=== PATIENT | female | born 1950 | race Caucasian/White ===

== ENCOUNTER 2016-12-15 17:02 | Emergency (ER) | payer MEDICARE ==
[2016-12-15 17:13] VITALS: BP 102/59
[2016-12-15] MEDS ORDERED: methylPREDNISolone 125 MG* 2 ML VIAL IM ONE (18:05)
--- NOTE | 2016-12-15 22:11 | ED ---
Kelley Ramires Janilya, scribed for Jessica Malin MD on 12/15/16 at 1800 . Allergic Reaction/Systemic - HPI Summary HPI Summary: A 66 y/o female came in to [facility] c/o allergic reaction. 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 Ms. Molina reports that she usually takes an epipen when she has bad allergic symptoms, but didn't have it with her, and wanted to get checked. Developed on and off pruritus and allergic feeling since (today is Sun). But she thinks today, exposure to terpentine type product in the same room as she was in set her off. No sob / cp / palpitations. Mild cough, clear. + itchy all over over the last few days. Now a little itchy upper back and red face. States felt tongue was swollen. [place] jittery at the onset of today's sx. No GI issues. No vis / aud issues. No abd discomfort. Pt normally takes Zyrtec, steroid nasal spray 10 mg, famotidine daily. Sometimes, pt uses epi pen for her allergic reactions. Pt reports she had the worst reaction a year ago. Allergic to Benadryl. - History of Current Complaint Chief Complaint: UCAllergicReaction Time Seen by Provider: 12/15/16 17:48 Hx Obtained From: Patient Onset/Duration: Sudden Onset, Started days ago, Worse Since - today at 1645 Timing: Intermittent, Lasting Hours Severity Initially: Moderate Severity Currently: Moderate Associated Signs And Symptoms: Positive: Difficulty Breathing, Rash - Allergies/Home Medications Allergies/Adverse Reactions: Allergies Allergy/AdvReac Type Severity Reaction Status Date / Time Diphenhydramine Allergy Intermediate rash, Verified 03/27/15 11:01 [From Benadryl] itching Penicillins [PCN] Allergy Intermediate rash, Verified 03/27/15 11:01 itching Sulfamethoxazole Allergy Intermediate itching, Verified 03/27/15 11:01 w/Trimethoprim lip [From Bactrim] swelling Sulfa Antibiotics Allergy Anaphylatic Verified 03/27/15 11:01 Shock environmental allergies Allergy See Comment Uncoded 12/15/16 17:14 Home Medications: Home Medications Epinephrine [Epipen 2-Keith] 0.3 mg IM 12/15/16 [History] PMH/Surg Hx/FS Hx/Imm Hx Previously Healthy: Yes - see hpi Endocrine/Hematology History: Denies: Hx Diabetes Cardiovascular History: Denies: Hx Hypertension, Hx Pacemaker/ICD Respiratory History: Denies: Hx Asthma Musculoskeletal History: Reports: Hx Osteoporosis Sensory History: Denies: Hx Hearing Aid Psychiatric History: Denies: Hx Panic Disorder - Cancer History Cancer Type, Location and Year: Uterine Hx Chemotherapy: No Hx Radiation Therapy: No - Surgical History Surgery Procedure, Year, and Place: Uterine Ca Hysterectomy Infectious Disease History: No Infectious Disease History: Denies: Traveled Outside the [place] in Last 30 Days - Family History Known Family History: Positive: Cardiac Disease, Hypertension, Diabetes, Other - cancer - Social History Lives: With Family Alcohol Use: None Substance Use Type: Reports: None Smoking Status (MU): Former Smoker Review of Systems Constitutional: Other - jittery sensations, face becoming itchy, tongue getting thick Eyes: Negative ENT: Negative Cardiovascular: Negative Respiratory: Negative Gastrointestinal: Negative Genitourinary: Negative Musculoskeletal: Negative Skin: Other - face flushed which is abnormal for pt Neurological: Negative Psychological: Normal All Other Systems Reviewed And Are Negative: Yes Physical Exam Triage Information Reviewed: Yes Vital Signs On Initial Exam: Initial Vitals Temp Pulse Resp BP Pulse Ox 99.5 F 80 18 102/59 100 12/15/16 17:07 12/15/16 17:07 12/15/16 17:07 12/15/16 17:07 12/15/16 17:07 Vital Signs Reviewed: Yes Appearance: Positive: Well-Nourished Skin: Positive: Other - face flushed across nose and cheeks. Eyes: Positive: Normal ENT: Positive: Normal ENT inspection, TM dull, Other - tongue protrudes ok. No airway obstuctive signs. Pt subjectively notes some swelling, but not outstanding at objective phys exam. No stridor. No sores noted. Neck: Positive: Supple - no adenopathy Respiratory/Lung Sounds: Positive: Clear to Auscultation, Breath Sounds Present , Decreased Breath Sounds Cardiovascular: Positive: Normal, RRR, Pulses are Symmetrical in both Upper and Lower Extremities. Negative: Murmur Abdomen Description: Positive: Nontender, No Organomegaly, Soft Bowel Sounds: Positive: Present Musculoskeletal: Positive: Normal, Strength/ROM Intact Neurological: Positive: Normal - nonfocal and grossly intact Psychiatric: Positive: Normal - conversing easily and appropriately Diagnostics - Vital Signs Vital Signs Temp Pulse Resp BP Pulse Ox 12/15/16 17:07 99.5 F 80 18 102/59 100 - Laboratory Lab Statement: Any lab studies that have been ordered have been reviewed, and results considered in the medical decision making process. Allergic Reaction Course/Dx - Course Course Of Treatment: No new problems in CCC. Current sx are not indicative of need for emergent epipen tx. Indeed, she has an Epipen at home. But does request refill as date may be expiring. Will start prednisone tape, solumedrol here. Allergy significant per pt report to antihistamines, as such will not recommend or prescribed. She does have antacid at home (per bleacher [employer], who also prescribed epipen). Denies cardiac condition. Advised to f/u with PCP, Dr. Perales - she will call on Sunday for appt. Will go to ED for worse or new symptoms. Corticosteroid - 5 day taper, including dose here. Ms. Molina was given the opportunity to ask several insightful questions, to which I answered to the best of my ability. Considered diff Dx's below. - Diagnoses Provider Diagnoses: Allergic Discharge - Discharge Plan Condition: Stable Disposition: HOME Prescriptions: Epinephrine [Epipen 2-Keith] 0.3 mg IM ONCE PRN #1 inj PRN Reason: Allergy Symptoms predniSONE TAB* [Deltasone TAB*] 10 mg PO DAILY #10 tab Patient Education Materials: Urticaria (ED), General Allergic Reaction (ED) Referrals: Alfredito Perales MD [Primary Care Provider] - Additional Instructions: Follow up with your primary care physician, Dr. Perales, per routine. Call his office on Sunday to let him know how you are doing and to schedule appointment as needed. Seek medical attention in the meantime if symptoms persist/worsen or new problems develop. The documentation as recorded by the Kelley xiao Janilya accurately reflects the service I personally performed and the decisions made by me, Jessica Malin MD.
== END 2016-12-15 18:48 | disposition home or self-care (01) ==
LOC: UCEAST 17:02
DX: T78.40XA Allergy, unspecified, initial encounter (principal); X58.XXXA Exposure to other specified factors, initial encounter; R21 Rash and other nonspecific skin eruption; R06.09 Other forms of dyspnea; Z88.2 Allergy status to sulfonamides; Z88.0 Allergy status to penicillin; Z88.8 Allergy status to other drugs, medicaments and biological substances; Z87.891 Personal history of nicotine dependence
CPT/HCPCS: 96372; 99212; G0463; J2930

== ENCOUNTER 2016-12-17 15:03 | Emergency (ER) | payer MEDICARE ==
[2016-12-17 15:17] VITALS: BP 129/66
--- NOTE | 2016-12-17 15:28 | UC ---
Knee Pain HPI - HPI Summary HPI Summary: pt c/o sudden left knee pain. Pt woke this morning with left knee pain. Is concerned about DVT - History of Current Complaint Stated Complaint: LEG & KNEE PAIN Time Seen by Provider: 12/17/16 15:14 Hx Obtained From: Patient ?: No Onset/Duration: Sudden Onset, Lasting Hours Severity Initially: Mild Severity Currently: None Character: Dull, Aching Aggravating Factor(s): Nothing Alleviating Factor(s): Rest Associated Signs And Symptoms: Positive: Negative Able to Bear Weight: Yes - Risk Factors Septic Arthritis Risk Factor: Negative Gout Risk Factor: Age ^ 39 - Allergies/Home Medications Allergies/Adverse Reactions: Allergies Allergy/AdvReac Type Severity Reaction Status Date / Time Diphenhydramine Allergy Intermediate rash, Verified 12/17/16 15:10 [From Benadryl] itching Penicillins [PCN] Allergy Intermediate rash, Verified 12/17/16 15:10 itching Sulfamethoxazole Allergy Intermediate itching, Verified 12/17/16 15:10 w/Trimethoprim lip [From Bactrim] swelling Sulfa Antibiotics Allergy Anaphylatic Verified 12/17/16 15:10 Shock environmental allergies Allergy See Comment Uncoded 12/17/16 15:10 PMH/Surg Hx/FS Hx/Imm Hx Previously Healthy: Yes Endocrine History Of: Denies: Diabetes, Thyroid Disease Cardiovascular History Of: Denies: Cardiac Disorders, Hypertension, Pacemaker/ICD Respiratory History Of: Denies: COPD, Asthma GI/ History Of: Denies: Ulcer Cancer History Of: Denies: Breast Cancer - Surgical History Surgical History: Yes Surgery Procedure, Year, and Place: Uterine Ca Hysterectomy - Family History Known Family History: Positive: Cardiac Disease, Hypertension, Diabetes, Other - cancer - Social History Alcohol Use: None Substance Use Type: None Smoking Status (MU): Former Smoker Review of Systems Constitutional: Negative Skin: Negative Eyes: Negative ENT: Negative Respiratory: Negative Cardiovascular: Negative Gastrointestinal: Negative Genitourinary: Negative Motor: Negative Neurovascular: Negative Musculoskeletal: Arthralgia - posterior left knee Neurological: Negative Psychological: Negative All Other Systems Reviewed And Are Negative: Yes Physical Exam Triage Information Reviewed: Yes Appearance: Well-Appearing Vital Signs: Initial Vital Signs Temp 97.5 F 12/17/16 15:12 Pulse 63 12/17/16 15:12 Resp 16 12/17/16 15:12 BP 129/66 12/17/16 15:12 Pulse Ox 98 12/17/16 15:12 Vital Signs Reviewed: Yes Neck exam: Normal Respiratory Exam: Normal Cardiovascular Exam: Normal Musculoskeletal Exam: Normal Musculoskeletal: Positive: Other: - no edema, erythema or tenderness upon examination to left knee. Full ROM Neurological Exam: Normal Psychological Exam: Normal Skin Exam: Normal Knee Pain Course/Dx - Differential Dx/Diagnosis Differential Diagnosis/HQI/PQRI: DVT, Sprain, Strain, Tendonitis Provider Diagnoses: left knee pain Discharge - Discharge Plan Condition: Stable Disposition: HOME Patient Education Materials: Knee Pain (ED) Referrals: Alfredito Perales MD [Primary Care Provider] -
== END 2016-12-17 15:40 | disposition home or self-care (01) ==
LOC: UCEAST 15:03
DX: M25.562 Pain in left knee (principal); Z88.0 Allergy status to penicillin; Z88.2 Allergy status to sulfonamides; Z88.8 Allergy status to other drugs, medicaments and biological substances; Z87.891 Personal history of nicotine dependence
CPT/HCPCS: 99211; G0463

== ENCOUNTER 2018-09-04 17:24 | Emergency (ER) | payer MEDICARE ==
[2018-09-04] MEDS ORDERED: NS 0.9% 1000 ML* 1,000 ML IV ONE (17:58)
[2018-09-04] MEDS ORDERED: Meclizine TAB* 12.5 MG PO ONE (18:02)
--- NOTE | 2018-09-04 18:06 | ED ---
Neurological HPI - HPI Summary HPI Summary: This pt is a 68 y/o female presenting to [facility] c/o unsteady gait, tingling in RUE and right side of face. Pt reports that for the past few weeks she has had "balance issues come back." She states she has hx of migraines and "a while back " had balance problems for which she was diagnosed with vestibular migraine. Pt states that this morning she had "balance issues" where she had to hold on to the cunha to ambulate around her apartment. She describes room spinning sensation. Notes "my legs were fine" but her "balance was severely off." Pt spoke with Dr. Rangel's office who recommended she comes to the ED. Currently denies headache, chest pain, SOB, weakness, nausea, vomiting. Pt notes she had a brain MRI, ordered by Dr. Rangel for right sided mouth drooping , that resulted negative. - History of Current Complaint Chief Complaint: EDNeurologicalDeficit Stated Complaint: RT SIDE NUMBNESS Time Seen by Provider: 09/04/18 17:50 Hx Obtained From: Patient Onset/Duration: Started weeks ago Timing: Constant Onset Severity: Moderate Current Severity: None Neurological Deficit Location: Facial - right side, RUE Pain Intensity: 0 - denies pain currently Pain Scale Used: 0-10 Numeric Character: Numbness/Tingling - tingling in RUE and right side of face, Other: - unsteady gait Aggravating: Nothing Alleviating: Nothing Associated Signs and Symptoms: Positive: Unsteady Gait. Negative: Headache, Weakness, Pain, Nausea/Vomiting, Fever, Chest Pain, Shortness of Breath - Allergy/Home Medications Allergies/Adverse Reactions: Allergies Allergy/AdvReac Type Severity Reaction Status Date / Time Sulfa (Sulfonamide Allergy Severe Anaphylatic Verified 09/04/18 17:33 Antibiotics) Shock diphenhydramine Allergy Intermediate Rash And Verified 09/04/18 17:33 Itching sulfamethoxazole Allergy Intermediate Swelling Verified 09/04/18 17:33 [From Bactrim] Of Face,Lips,& Throat trimethoprim [From Bactrim] Allergy Intermediate Swelling Verified 09/04/18 17: 33 Of Face,Lips,& Throat Penicillins Allergy Mild Rash Verified 09/04/18 17:33 acetaminophen [From Fioricet] Allergy Hives Verified 09/04/18 17:33 butalbital [From Fioricet] Allergy Hives Verified 09/04/18 17:33 caffeine [From Fioricet] Allergy Hives Verified 09/04/18 17:33 environmental allergies Allergy See Comment Uncoded 09/04/18 17:33 PMH/Surg Hx/FS Hx/Imm Hx Endocrine/Hematology History: Denies: Hx Diabetes, Hx Thyroid Disease Cardiovascular History: Denies: Hx Hypertension, Hx Pacemaker/ICD Respiratory History: Denies: Hx Asthma, Hx Chronic Obstructive Pulmonary Disease (COPD) GI History: Denies: Hx Ulcer History: Denies: Hx Renal Disease Musculoskeletal History: Reports: Hx Osteoporosis Sensory History: Denies: Hx Hearing Aid Psychiatric History: Denies: Hx Panic Disorder - Cancer History Cancer Type, Location and Year: Uterine Hx Chemotherapy: No Hx Radiation Therapy: No - Surgical History Surgery Procedure, Year, and Place: HX UTERINE CA TOTAL HYSTERECTOMY 2009. TONSILS AGE 4. LEFT WRIST GANGLION CYST Infectious Disease History: No Infectious Disease History: Reports: Hx Shingles - 2008 Denies: Hx Hepatitis, Hx Human Immunodeficiency Virus (HIV), History Other Infectious Disease, Traveled Outside the [place] in Last 30 Days - Family History Known Family History: Positive: Cardiac Disease, Hypertension, Diabetes, Other - cancer - Social History Alcohol Use: None Substance Use Type: Reports: None Smoking Status (MU): Former Smoker Review of Systems Negative: Fever, Chills Negative: Chest Pain Negative: Shortness Of Breath Neurological: Other - unsteady gait Positive: Paresthesia - in RUE and right side of face. Negative: Headache, Weakness All Other Systems Reviewed And Are Negative: Yes Physical Exam - Summary Physical Exam Summary: VITAL SIGNS: Reviewed. GENERAL: Patient is a well-developed and nourished female who is lying comfortable in the stretcher. Patient is not in any acute respiratory distress. Patient ambulated into the ED room without difficulty. HEAD AND FACE: No signs of trauma. No ecchymosis, hematomas or skull depressions. No sinus tenderness. EYES: PERRLA, EOMI x 2, No injected conjunctiva, no nystagmus. EARS: Hearing grossly intact. Ear canals and tympanic membranes are within normal limits. MOUTH: Oropharynx within normal limits. NECK: Supple, trachea is midline, no adenopathy, no JVD, no carotid bruit, no c- spine tenderness, neck with full ROM. CHEST: Symmetric, no tenderness at palpation LUNGS: Clear to auscultation bilaterally. No wheezing or crackles. CVS: Regular rate and rhythm, S1 and S2 present, no murmurs or gallops appreciated. ABDOMEN: Soft, non-tender. No signs of distention. No rebound, no guarding, and no masses palpated. Bowel sounds are normal. EXTREMITIES: FROM in all major joints, no edema, no cyanosis or clubbing. NEURO: Alert and oriented x 3. No acute neurological deficits. Speech is normal and follows commands. Patient ambulated into the ED room without any difficulty. SKIN: Dry and warm GCS: 15 Triage Information Reviewed: Yes Vital Signs On Initial Exam: Initial Vitals Temp Pulse Resp BP Pulse Ox 97.4 F 58 16 131/75 100 09/04/18 17:27 09/04/18 17:27 09/04/18 17:27 09/04/18 17:27 09/04/18 17:27 Vital Signs Reviewed: Yes Diagnostics - Vital Signs Vital Signs Temp Pulse Resp BP Pulse Ox 09/04/18 17:27 97.4 F 58 16 131/75 100 - Laboratory Result Diagrams: 09/04/18 18:13 09/04/18 18:13 Lab Statement: Any lab studies that have been ordered have been reviewed, and results considered in the medical decision making process. - Radiology Chest XR Xray Interpretation: No Acute Changes Radiology Interpretation Completed By: ED Physician - EKG 18:16 Cardiac Rate: NL - at 60 bpm EKG Rhythm: Sinus Rhythm EKG Interpretation: No ST elevations. NIH Scale - NIH Scale Level of Consciousness: Alert/Keenly Responsive Ask Patient the Month and His/Her Age: Both Correct Ask Pt to Open/Close Eyes and Vamp Marker/Release Non-Paretic Hand: Both Correctly Best Gaze (Only Horizontal Eye Movement): Normal Visual Field Testing: No Visual Loss Facial Paresis-Pt to Smile & Close Eyes or Grimace Symmetry: Normal/Symmetrical Motor Function - Right Arm: No Drift-Holds 10 Seconds Motor Function - Left Arm: No Drift-Holds 10 Seconds Motor Function - Right Leg: No Drift-Holds 10 Seconds Motor Function - Left Leg: No Drift-Holds 10 Seconds Limb Ataxia-Must be out of Proportion to Weakness Present: Absent Sensory (Use Pinprick to Test Arms/Legs/Trunk/Face): Normal Best Language (Describe Picture, Name Items): No Aphasia Dysarthria (Read Several Words): Normal Extinction and Inattention: No Abnormality Total Score: 0 Course/Dx - Course Assessment/Plan: This pt is a 68 y/o female presenting to [facility] c/o unsteady gait, tingling in RUE and right side of face. Pt reports that for the past few weeks she has had "balance issues come back." She states she has hx of migraines and "a while back" had balance problems for which she was diagnosed with vestibular migraine. Pt states that this morning she had "balance issues" where she had to hold on to the cunha to ambulate around her apartment. She describes room spinning sensation. Notes "my legs were fine" but her "balance was severely off." Pt spoke with Dr. Rangel's office who recommended she comes to the ED. Currently denies headache, chest pain, SOB, weakness, nausea, vomiting. Pt notes she had a brain MRI, ordered by Dr. Rangel for right sided mouth drooping, that resulted negative. Reviewing the patient's chart the patient had a brain MRI in Apr 17 2018 and it was read as stable nonspecific white matter changes. Patient had a CTA in May 16, 2018 and it was read as no internal carotic artery stenosis. No aneurysm, vascular malformation or occlusion or stenosis of the visualized intracranial circulation. MRI of the brain on August 30, 2018 is read as a stable nonspecific white matter changes. No restricted diffusion to suggest acute infarct. Blood work is without any significant abnormality. The patient came complaining of unsteady gait however the patient ambulated into the emergency department without any ataxia or unsteady gait. The patient's NIH score is equal to 0. GCS is 15. However because of the current symptoms I decided to do a head CT to rule out any acute intracranial pathology. Patient reports that she spoke with her neurologist Dr. Rangel and he recommended to come to the emergency department. The patient will be signed out to Dr. Peterson at shift change. The head CT is still pending. The TSH and vitamin B12 are still pending. Patient continues to be hemodynamically stable, alert and oriented 3. - Diagnoses Provider Diagnoses: Numbness Discharge - Sign-Out/Discharge Documenting (check all that apply): Sign-Out Patient Signing out patient TO: Alan Peterson - pending brain CT - Discharge Plan Condition: Stable Disposition: HOME Patient Education Materials: Paresthesia (ED) Referrals: Lisa Alfred MD [Primary Care Provider] - 2 Days Additional Instructions: RETURN TO THE ED FOR ANY NEW OR WORSENING SYMPTOMS. FOLLOW UP WITH PRIMARY CARE PHYSICIAN IN 1-2 DAYS. - Billing Disposition and Condition Condition: STABLE - Attestation Statements Document Initiated by Scribe: Yes Documenting Scribe: Nadia Fernandez Provider For Whom Scribe is Documenting (Include Credential): Ra Donovan MD Scribe Attestation: Nadia Ramires, scribed for Ra Donovan MD on 09/05/18 at 0748. Scribe Documentation Reviewed: Yes Provider Attestation: The documentation as recorded by the Nadia xiao accurately reflects the service I personally performed and the decisions made by , Ra Donovan MD
[2018-09-04 18:21] LABS: ABS Basophils 0.1 10^3/ul (0-0.2); ABS Eosinophils 0.2 10^3/ul (0-0.6); ABS Lymphocytes 2.3 10^3/ul (1.0-4.8); ABS Monocytes 0.4 10^3/ul (0-0.8); ABS Neutrophils 4.3 10^3/ul (1.5-7.7); ABS Nucleated RBC 0 10^3/ul; Eosinophil % 2.2 % (0-6); Hematocrit 39 % (35-47); Hemoglobin 13.3 g/dl (12.0-16.0); Lymphocyte % 31.5 % (25-47); Mean Corpuscular HGB Conc 34 g/dl (31-36); Mean Corpuscular Hemoglobin 29 pg (27-31); Mean Corpuscular Volume 86 fL (80-97); Nucleated Red Blood Cells % 0.2; Platelet Count 188 10^3/ul (150-450); Red Blood Count 4.56 10^6/ul (4.00-5.40); Red Cell Distribution Width 14 % (10.5-15); White Blood Count 7.2 10^3/ul (3.5-10.8)
[2018-09-04 18:26] LABS: INR 0.96 (0.77-1.02)
[2018-09-04 18:38] LABS: EGFR Non-African American 69.1 (>60)
--- NOTE | 2018-09-04 19:06 | RAD ---
EXAM: CT Head Without Intravenous Contrast EXAM DATE/TIME: 09/04/2018 6:27 PM CLINICAL HISTORY: 68 years old, female; Signs and symptoms; Walking, difficulty; Additional info: Unsteady gait TECHNIQUE: Axial computed tomography images of the head/brain without intravenous contrast. All CT scans at this facility use at least one of these dose optimization techniques: automated exposure control; mA and/or kV adjustment per patient size (includes targeted exams where dose is matched to clinical indication); or iterative reconstruction. COMPARISON: CTA HD/NK CTA HEAD/NEC 05/16/2018 9:36 AM FINDINGS: Brain: Normal. No hemorrhage. No significant white matter disease. No edema. Ventricles: Normal. No ventriculomegaly. Bones/joints: Normal. No acute fracture. Sinuses: Normal as visualized. No acute sinusitis. Mastoid air cells: Normal as visualized. No mastoid effusion. Soft tissues: Normal. IMPRESSION: 1. No acute intracranial abnormality. 2. No change from the comparison study. To contact [facility] with a general question: [facility] - [phone] For direct physician to physician contact: Physician Hotline - [phone] [facility] ([facility] Facility ID #[id number])
--- OUTSIDE RECORDS SUMMARY | 2018-09-04 19:21 | XMS REPORT | Continuity of Care Document ---
:1950 External Reference #:[id number] Author Name Lisa Sow M.D., R.DBj Address [address] [place] [address] Care Team Providers Name Role Phone Lisa Sow M.D., Luis Care Team Information Public Works Manager Unavailable Payers Type Date Identification Numbers Payment Provider Subscriber Effective: Policy Number: [id number] Medicare - Bswny d Leatha Molina 2014 PayID: [id number] [address] [place] [address] Effective: 2014 Policy Number: [id number] [facility] Leatha Ontiveros Tracy [address] [place] [address] Advance Directives Description No Information Available Problems Description No Information Family History Date Family Member(s) Problem(s) Comments General Adrenal carcinoma Mother - age 90 Father Hypertension Father Diabetes Type 2 Mother Cancer, Colon Mother Osteoporosis Social History Type Date Description Comments Sex Unknown Tobacco Use Start: 11/26/77 End: Patient is a former smoker 2ppd x 20 yrs 11/26/97 Smoking Status Reviewed: 12/31/17 Patient is a former smoker 2ppd x 20 yrs Allergies, Adverse Reactions, Alerts Date Description Reaction Status Severity Comments 07/20/2017 Penicillins Urticaria Active Mild 07/20/2017 Sulfamethoxazole / Trimethoprim Active 07/20/2017 Sulfa Anaphylaxis Active Severe 07/20/2017 Diphenhydramine Urticaria Active Moderate Medications Medication Date Status Form Strength Qnty SIG Indications Ordering Provider Oxygen 07/01 Active 2L via ne overnight Valeria Sow, R.D. Vitamin A 06/07 Active Capsules 2400mcg Valeria Sow, R.D. Sertraline HCL Active Tablets 50mg 90tab 1 tab po qd Lisa s Marco Sow., R.D. Levocetirizine Active Tablets 5mg Unknown Dihydrochloride Calcium Citrate Active Tablets 1 by mouth Unknown + /0000 every day Vitamin B Active Tablets 1 per day Unknown Complex / Vitamin D3 High Active Capsules 1000Unit Unknown Potency / Methyl B-12 Active Lozenges 1000mcg 1/2-1 by Unknown /0000 mouth everyday Vitamin C ER Active Tablets ER 1000mg Unknown / Restasis Active Emulsion 0.05% per eye / doctor Optive Jono-3 Active Unknown Eye Drops / Verapamil HCL ER Active Caps ER 120mg Take One Unknown / 24HR Capsule By Mouth Every Day Sumatriptan Active Tablets 50mg Take One Unknown Succinate /0000 Tablet By Mouth AT Onset Of Migraine May Repeat Within 2 Juanita Famotidine Active Tablets 40mg [place] / , Cathleen Epipen 2-Keith Active Solution 0.3mg/0.3 use as Unknown / Auto-Inject ML directed Tramadol HCL Active Tablets 50mg 1 tab by Unknown /0000 mouth three times a day as needed pain Ondansetron Active Tablets 4mg dissolve 1 Unknown / Dispers tab by mouth three times a day as needed nausea Flaxseed Oil Active Capsules 1000mg 1 by mouth Unknown /0000 every day Shingrix 03/08 Hx Suspension 50mcg 1unit administer Rec s vaccine to Juan Miguel Sow pt, M.D., 06/07 R.DBj /2017 Verapamil HCL Hx Tablets 40mg 1 tab tid Bonno, Nadia - 12/31 Neomycin/Polymyx Hx Ointment 1% Unknown in/Bacitracin/ drocortisone - 06/07 Immunizations CPT Code Status Date Vaccine Reaction Lot # [id number] Given 08/26/2018 Influenza Vacc[place] [id number] [id number] Given 07/11/2018 Zoster (Shingles) Shingrix administered by Vaccine (HZV), Ramses Recombinant, Subunit, Adjuvanted 99356 Given 03/12/2018 Zoster (Shingles) Vaccine (HZV), Recombinant, Subunit, Adjuvanted 86607 Given 09/05/2017 Influenza Virus Vaccine, Quadrivalent, 3 Yr > Quad, Preserv Free Vital Signs Date Vital Result Comment 08/26/2018 1:44pm Weight 156.00 lb Weight 70.762 kg BP Systolic 118 mmHg BP Diastolic 70 mmHg Heart Rate 60 /min Body Temperature 97.6 F Respiratory Rate 16 /min O2 % BldC Oximetry 98 % 06/07/2018 11:00am Weight 155.00 lb Weight 70.308 kg BP Systolic 116 mmHg BP Diastolic 70 mmHg Heart Rate 60 /min Body Temperature 98.4 F Respiratory Rate 16 /min 01/11/2018 10:41am Weight 139.00 lb Weight 63.050 kg BP Systolic 116 mmHg BP Diastolic 76 mmHg Heart Rate 54 /min Body Temperature 96.8 F Respiratory Rate 18 /min O2 % BldC Oximetry 99 % 12/31/2017 9:30am Weight 142.00 lb Weight 64.411 kg BP Systolic 94 mmHg BP Diastolic 60 mmHg Heart Rate 64 /min Body Temperature 96.7 F Respiratory Rate 14 /min Height 63.5 inches 5'3.50" BMI (Body Mass Index) 24.8 kg/m2 07/20/2017 9:57am Weight 144.00 lb Weight 65.318 kg BP Systolic 110 mmHg BP Diastolic 64 mmHg Heart Rate 72 /min Body Temperature 97.0 F Respiratory Rate 16 /min Height 63.5 inches 5'3.50" BMI (Body Mass Index) 25.1 kg/m2 Results Test Date Facility Test Result H/L Range Note Laboratory test 06/07/2018 [facility] Vitamin B12 788 pg/mL 180-914 1 finding [phone] TSH (Thyroid Stim Horm) 1.57 mcIU/mL 0.34-5.60 2 Laboratory test 05/27/2018 [facility] Surgical SEE RESULT 3, 4 finding [phone] Interface BELOW Order Laboratory test 05/27/2018 [facility] Clotest SEE RESULT 5 finding [phone] BELOW Laboratory test 02/12/2018 [facility] Helico Pylori Negative Negative 6, 7 finding [phone] Antigen- Stool Laboratory test 12/31/2017 [facility] Cytology SEE RESULT 8 finding [phone] BELOW Comp Metabolic 12/24/2017 [facility] Sodium 135 mmol/ L 133-145 Panel [phone] Potassium 3.9 mmol/L 3.5-5.0 Chloride 103 mmol/L 101-111 Co2 Carbon Dioxide 26 mmol/L 22-32 Anion Gap 6 mmol/L 2-11 Glucose 80 mg/dL 70-100 Blood Urea Nitrogen 18 mg/dL 6-24 Creatinine 0.68 mg/dL 0.51-0.95 BUN/Creatinine Ratio 26.5 High 8-20 Calcium 8.9 mg/dL 8.6-10.3 Total Protein 5.9 g/dL Low 6.4-8.9 Albumin 4.0 g/dL 3.2-5.2 Globulin 1.9 g/dL Low 2-4 Albumin/Globulin Ratio 2.1 1-3 Total Bilirubin 0.30 mg/dL 0.2-1.0 Alkaline Phosphatase 111 U/L High 34-104 Alt 18 U/L 7-52 Ast 23 U/L 13-39 Egfr Non- 86.0 >60 Egfr 110.7 >60 9 Lipid Profile 12/24/2017 [facility] Triglycerides 82 mg/dL 10 (Trig/Chol/HDL) [phone] Cholesterol 166 mg/dL 11 HDL Cholesterol 68.3 mg/dL 12 LDL Cholesterol 81 mg/dL 13 CBC Auto Diff 12/24/2017 [facility] White Blood 7.4 10^3/uL 3.5-10.8 [phone] Count Red Blood Count 4.24 10^6/uL 4.0-5.4 Hemoglobin 12.7 g/dL 12.0-16.0 Hematocrit 38 % 35-47 Mean Corpuscular Volume 88 fL 80-97 Mean Corpuscular Hemoglobin 30 pg 27-31 Mean Corpuscular HGB Conc 34 g/dL 31-36 Red Cell Distribution Width 14 % 10.5-15 Platelet Count 206 10^3/uL 150-450 Mean Platelet Volume 9 um3 7.4-10.4 Abs Neutrophils 4.4 10^3/uL 1.5-7.7 Abs Lymphocytes 2.4 10^3/uL 1.0-4.8 Abs Monocytes 0.5 10^3/uL 0-0.8 Abs Eosinophils 0.1 10^3/uL 0-0.6 Abs Basophils 0.1 10^3/uL 0-0.2 Abs Nucleated RBC 0 10^3/uL Granulocyte % 59.4 % 38-83 Lymphocyte % 31.9 % 25-47 Monocyte % 6.5 % 1-9 Eosinophil % 1.5 % 0-6 Basophil % 0.7 % 0-2 Nucleated Red Blood Cells % 0 Laboratory 12/24/2017 [facility] Hepatitis C Nonreactive Nonreactive 14 test finding [phone] Antibody Vitamin D Total 25(Oh) 44.6 ng/mL 20-50 15 1 Normal Range 180 to 914 Indeterminate Range 145 to 180 Deficient Range <145 2 [id number] 4 SEE RESULT BELOW Name: LEATHA MOLINA : [address]: Epi [place] MD Acct: [id number] Unit: [id number] AGE: 67 Location: [facility] Re05/27/18 SEX: F Status: DEP REF SPEC: [id number] AIME: 05/27/18-[address] [facility] [address]: Epi [place] MD REQ: [id number] RECD: 05/27/182 STATUS: MARIANELA ZHENG DR: Lisa Sow MD _ ORDERED: LEVEL 4 COMMENTS: [id number] FINAL DIAGNOSIS Stomach, fundus, biopsy: -- Body-type gastric mucosa with mild chronic gastritis. -- No evidence of Helicobacter organisms. CLINICAL HISTORY Screening/Surveillance for malignancy in asymptomatic patient; 6 months ago ? discomfort (right upper quadrant), never severe- felt warm, or burning, or aching. POST-OPERATIVE DIAGNOSIS EGD: esophagus ? hiatus 37 ? cm, small to medium hiatal hernia, EG junction 35 cm, edema no erosion; stomach ? mild erythema in fundus; duodenum ? normal; conclusion: hiatal hernia, dyspepsia ? gastroesophageal reflux disease likely. GROSS DESCRIPTION The specimen is received in formalin labeled, Biopsy Gastric Fundus, and consists of two echevarria irregular soft tissue fragments averaging 0.8 x 0.2 x 0.1 cm which are submitted entirely in one cassette. Signed by and Reported on: Felicia Padron MD 05/28/18 1337 END OF REPORT DEPARTMENT OF PATHOLOGY, [address] [place] [address] Vince Paul M.D. Director [facility] # [id number] 5 SEE RESULT BELOW Name: LEATHA MOLINA : [address]: Epi [place] MD Acct: [id number] Unit: [id number] AGE: 67 Location: [facility] Re05/27/18 SEX: F Status: DEP REF SPEC: [id number] AIME: 05/27/[address] [facility] [address]: Epi [place] MD REQ: [id number] RECD: 05/27/18 STATUS: COMP NORM DR: Mary Sow MD _ [facility] ORDERED: Clotest Procedure Result Reported Site Clotest Final 05/28/18- 99 ML Clotest Negative * ML - Main Lab . END OF REPORT DEPARTMENT OF PATHOLOGY, [address] [place] [address] Vince Paul M.D. Director [facility] # [id number] Test Performed by: [address] [id number] 8 SEE RESULT BELOW Name: LEATHA MOLINA : [address]: Lisa Sow MD Acct: [id number] Unit: [id number] AGE: 67 Location: [facility] Re12/31/17 SEX: F Status: REG REF SPEC: [id number] AIME: 12/31/17-[address] [facility] [address]: Lisa Sow MD REQ: [id number] RECD: 12/31/17 STATUS: SOUT _ ORDERED: TP IMAGE ANAL, HPV/Thin Prep, HPV 16/18 GENE COMMENTS: [id number] Negative for Intraepithelial lesion or Malignancy A. Ectocervical/Endocervical Specimen Adequacy: Satisfactory of evaluation Transformation zone component not identified Patient Information: HPV: High risk HPV RNA testing regardless of pap results. HPV 16/18 Genotype Reflex Actual Specimen Date: 12/31/17 Spec Date if unknown: unknown Date Time Test Result Flag (u) Normal Range 12/31/17 1216 @ HPV RNA RFLX GE Negative Negative @ @ The high-risk HPV types detected by the assay include: 16, @ 18, 31, 33, 35, 39, 45, 51, 52, 56, 58, 59, 66, and 68. Signed (signature on file) JAYA Gaona(ASCP) 01/01 1239 This Pap test was evaluated with the assistance of the walkbyPrep Test Imaging System. Due to cytologic findings at the lead web application developer microscope, comprehensive manual rescreening by a Director Of Corporate Responsibility may be required. The Pap Smear is a screening test designed to aid in the detection of premalignant and malignant conditions of the uterine cervix. It is not a diagnostic procedure and should not be used as the sole means of detecting cervical cancer. Both false- positive and false- negative reports do occur. Depending on your risk status, a Pap smear should be obtained and evaluated every 1-3 years. END OF REPORT * ML=Testing performed at Main Lab DEPARTMENT OF PATHOLOGY, [address] [place] [address] Vince Paul M.D. Director [facility] # [id number] 9 Because ethnic data is not always readily available, this report includes an eGFR for both -Americans and non- Americans. The National Kidney Disease Education Program (NKDEP) does not endorse the use of the MDRD equation for patients that are not between the ages of 18 and 70, are , have extremes of body size, muscle mass, or nutritional status, or are non- or non-. According to the National Kidney Foundation, irrespective of diagnosis, the stage of the disease is based on the level of kidney function: Stage Description GFR(mL/min/1.73 m(2)) 1 Kidney damage with normal or decreased GFR 90 2 Kidney damage with mild decrease in GFR 60-89 3 Moderate decrease in GFR 30-59 4 Severe decrease in GFR 15-29 5 Kidney failure <15 (or dialysis) 10 Desirable: <150 Borderline High: 150-199 High: 200-499 Very High: >500 11 Desirable: <200 Borderline High: 200-239 High: >239 12 Low: <40 Desirable: 40-60 High: >60 13 Desirable: <100 Near Optimal: 100-129 Borderline High: 130-159 High: 160-189 Very High: >189 14 [id number] FASTING 10 HOUR 15 [id number] FASTING 10 HOUR Procedures Description No Information Available Encounters Type Date Location Provider Dx Diagnosis Office Visit 06/07/2018 [facility] Lisa Sow, G47.30 Sleep apnea, 10:45a Valeria RBibi unspecified R41.81 Age-related cognitive decline R10.9 Unspecified abdominal pain Office Visit 01/11/2018 10:30a Main Office Lisa Sow R10.9 Unspecified Valeria, R.Nusrat abdominal pain Office Visit 12/31/2017 9:30a Main Office Lisa Sow Z00.00 Encntr for general Valeria, R.D. adult medical exam w/o abnormal findings E55.9 Vitamin D deficiency, unspecified R10.9 Unspecified abdominal pain Office Visit 07/20/2017 10:15a Main Office Lisa Juanjose, G43.109 Migraine with auraValeria, R.D. 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
[2018-09-04 19:38] LABS: Urine Appearance Cloudy; Urine Blood Negative (Negative); Urine Color Yellow; Urine Ketones Negative (Negative); Urine Protein Negative (Negative); Urine Specific Gravity 1.004 (1.010-1.030); Urine Urobilinogen Negative (Negative)
--- NOTE | 2018-09-04 20:23 | ED ---
Progress - Progress Note Progress Note: PATIENT WAS SIGNED OUT TO DR. PETERSON BY DR. DONOVAN, PENDING SHIFT CHANGE ON [address]: IMPRESSION: 1. No acute intracranial abnormality. 2. No change from the comparison study. GCS: 15 Course/Dx - Course Course Of Treatment: A 68 y/o female presents to ED c/o unsteady gait, tingling in RUE and right side of face. Patient was signed out to Dr. Peterson via Dr. Donovan pending Brain CT, on shift change on 09/04/[address] revealed 1. No acute intracranial abnormality. 2. No change from the comparison study. Patient will be discharged with a diagnosis of numbness. Patient is to follow up with PCP in 1-2 days. Patient is agreeable with this plan. - Diagnoses Provider Diagnoses: Numbness Discharge - Sign-Out/Discharge Documenting (check all that apply): Patient Departure - DISCHARGE - Discharge Plan Condition: Stable Disposition: HOME Patient Education Materials: Paresthesia (ED) Referrals: Lisa Alfred MD [Primary Care Provider] - 2 Days Additional Instructions: RETURN TO THE ED FOR ANY NEW OR WORSENING SYMPTOMS. FOLLOW UP WITH PRIMARY CARE PHYSICIAN IN 1-2 DAYS. - Attestation Statements Document Initiated by Scribe: Yes Documenting Scribe: Ab Haines Provider For Whom Maida is Documenting (Include Credential): Alan Peterson MD Scribe Attestation: Ab Ramires, scribed for Alan Peterson MD on 09/04/18 at 6.
[2018-09-04 20:51] VITALS: BP 125/78
--- NOTE | 2018-09-05 07:45 | RAD ---
Indication: Migraine headache, speech difficulty, balance issues, altered mental status. Comparison: No relevant prior exams available on the [facility] for comparison. Technique: Upright AP 1822 hours Report: Clear lungs and pleural spaces. Negative for pneumothorax. The heart, pulmonary vasculature, and mediastinal contours are unremarkable. LEFT glenohumeral joint osteoarthritis. IMPRESSION: #. No evidence for acute intrathoracic disease. R1
== END 2018-09-04 20:51 | disposition home or self-care (01) ==
LOC: ED 17:24
DX: R20.0 Anesthesia of skin (principal); Z87.891 Personal history of nicotine dependence; Z85.42 Personal history of malignant neoplasm of other parts of uterus
CPT/HCPCS: 36415; 70450; 71045; 80053; 80061; 80307; 80320; 81003; 82607; 83605; 84443; 84484; 85025; 85610; 85730; 93005; 96360; 99283; A9270-GY; G0480

== ENCOUNTER 2018-11-15 00:57 | Emergency (ER) | payer MEDICARE ==
--- NOTE | 2018-11-15 01:12 | ED ---
Skin Complaint - HPI Summary HPI Summary: This patient is a 68 year old F brought in by ambulance with a chief complaint of pruritus of the chest since this evening before she went to sleep. Patient reports photophobia, erythema of her ears, shakiness, lightheadedness, nausea, and OROPEZA. Patient denies SOB, hives, stridor or CP. The patient says she took a new, injectable migraine medication today at 10:00am. She did not feel symptoms until just before she went to sleep, but she insists that it is an allergic reaction. The medication is preventative according to the patient, but she says she has had a migraine for the last 6 days. All of the symptoms, excluding the OROPEZA, occurred after the injection. The patient states that it is possible to have an allergic reaction to this medication up to a month after the injection. 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 She sees Dr. Rangel, neurologist, who prescribed her this medication. She has had migraines for the last 3 years. PMHX migraines. - History of Current Complaint Stated Complaint: ALLERGIC REACTION Hx Obtained From: Patient Onset/Duration: Started Hours Ago Timing: Constant Skin Location: Discrete - chest, ears Character: Pruritus Aggravating Symptom(s): Other: - new migraine medication Associated Signs & Symptoms: Nausea, Shivering, Rash, Lightheadedness - Allergy/Home Medications Allergies/Adverse Reactions: Allergies Allergy/AdvReac Type Severity Reaction Status Date / Time Sulfa (Sulfonamide Allergy Severe Anaphylatic Verified 09/04/18 17:33 Antibiotics) Shock diphenhydramine Allergy Intermediate Rash And Verified 09/04/18 17:33 Itching sulfamethoxazole Allergy Intermediate Swelling Verified 09/04/18 17:33 [From Bactrim] Of Face,Lips,& Throat trimethoprim [From Bactrim] Allergy Intermediate Swelling Verified 09/04/18 17: 33 Of Face,Lips,& Throat Penicillins Allergy Mild Rash Verified 09/04/18 17:33 acetaminophen [From Fioricet] Allergy Hives Verified 09/04/18 17:33 butalbital [From Fioricet] Allergy Hives Verified 09/04/18 17:33 caffeine [From Fioricet] Allergy Hives Verified 09/04/18 17:33 environmental allergies Allergy See Comment Uncoded 09/04/18 17:33 PMH/Surg Hx/FS Hx/Imm Hx Endocrine/Hematology History: Denies: Hx Diabetes, Hx Thyroid Disease Cardiovascular History: Denies: Hx Hypertension, Hx Pacemaker/ICD Respiratory History: Denies: Hx Asthma, Hx Chronic Obstructive Pulmonary Disease (COPD) GI History: Denies: Hx Ulcer History: Denies: Hx Renal Disease Musculoskeletal History: Reports: Hx Osteoporosis Sensory History: Denies: Hx Hearing Aid Neurological History: Reports: Hx Migraine - last 3 years 11/15/2018 Psychiatric History: Denies: Hx Panic Disorder - Cancer History Cancer Type, Location and Year: Uterine Hx Chemotherapy: No Hx Radiation Therapy: No - Surgical History Surgery Procedure, Year, and Place: HX UTERINE CA TOTAL HYSTERECTOMY 2010. TONSILS AGE 4. LEFT WRIST GANGLION CYST Infectious Disease History: Reports: Hx Shingles - 2008 Denies: Hx Hepatitis, Hx Human Immunodeficiency Virus (HIV), History Other Infectious Disease - Family History Known Family History: Positive: Cardiac Disease, Hypertension, Diabetes, Other - cancer - Social History Alcohol Use: None Substance Use Type: Reports: None Smoking Status (MU): Former Smoker Review of Systems Positive: Other - shakiness Positive: Photophobia Negative: Chest Pain Negative: Shortness Of Breath Positive: Nausea Positive: Rash - chest, ears. Negative: Other - hives Positive: Headache All Other Systems Reviewed And Are Negative: Yes Physical Exam - Summary Physical Exam Summary: Appearance: Well-appearing, Well-nourished, lying in bed comfortably Skin: Warm, dry, no obvious rash Eyes: sclera anicteric, no conjunctival pallor ENT: mucous membranes moist, pharynx appears normal Neck: Supple, nontender Respiratory: Clear to auscultation, no signs of respiratory distress Cardiovascular: Normal S1, S2. No murmurs. Normal distal pulses in tibial and radial bilaterally. Abdomen: Soft, nontender, normal active bowel sounds present Musculoskeletal: Normal, Strength/ROM Intact Neurological: A&Ox3, awake and alert, mentation is normal, speech is fluent and appropriate Psychiatric: affect is normal, does not appear anxious or depressed Triage Information Reviewed: Yes Vital Signs Reviewed: Yes Course/Dx - Course Course Of Treatment: This patient is a 68 year old F brought in by ambulance with a chief complaint of pruritus of the chest since this evening before she went to sleep. Patient reports photophobia, erythema of her ears, shakiness, lightheadedness, nausea, and OROPEZA. Patient denies SOB, hives, stridor or CP. In the ED course the patient was given Hydroxyzine and Prednisone. Patient will be discharged with prescription for Hydroxyzine and follow up from Dr. Sow. The patient is agreeable with this plan. - Diagnoses Provider Diagnoses: Allergic reaction Discharge - Sign-Out/Discharge Documenting (check all that apply): Patient Departure - discharge - Discharge Plan Condition: Good Disposition: HOME Prescriptions: hydrOXYzine HCL TAB* [Atarax 25 MG TAB*] 25 mg PO QID PRN #20 tab PRN Reason: Allergy Symptoms Patient Education Materials: General Allergic Reaction (ED) Referrals: Lisa Sow MD [Primary Care Provider] - - Billing Disposition and Condition Condition: GOOD Disposition: Home - Attestation Statements Document Initiated by Maida: Yes Documenting Scribe: Yeyo Vega Provider For Whom Maida is Documenting (Include Credential): Jose Castro MD Scribe Attestation: Yeyo Ramires scribed for Jose Castro MD on 11/17/18 at 1104. Scribe Documentation Reviewed: Yes Provider Attestation: The documentation as recorded by the Yeyo xiao accurately reflects the service I personally performed and the decisions made by , Jose Castro MD Status of Scribe Document: Viewed
[2018-11-15] MEDS ORDERED: hydrOXYzine HCL TAB* 25 MG PO ONE (01:14)
[2018-11-15] MEDS ORDERED: predniSONE TAB* 20 MG PO ONE (01:15)
[2018-11-15 04:14] VITALS: BP 100/56
== END 2018-11-15 04:00 | disposition home or self-care (01) ==
LOC: ED 00:57
DX: T78.40XA Allergy, unspecified, initial encounter (principal); X58.XXXA Exposure to other specified factors, initial encounter; Y92.9 Unspecified place or not applicable; Z87.891 Personal history of nicotine dependence; Z85.42 Personal history of malignant neoplasm of other parts of uterus; M81.0 Age-related osteoporosis without current pathological fracture
CPT/HCPCS: 99282; A9270-GY; J7512